=== PATIENT | female | born 1965 | race Two or more races ===

== ENCOUNTER 2016-11-26 17:51 | Emergency (ER) | payer OTHER ==
[2016-11-26 18:26] LABS: PH,URINE 6.5 (5.0-8.0); URINE BILIRUBIN NEGATIVE (NEGATIVE); URINE BLOOD 4+ (NEGATIVE); URINE GLUCOSE (UA) NEGATIVE (NEGATIVE); URINE LEUKOCYTE ESTERASE 2+ (NEGATIVE); URINE NITRITE NEGATIVE (NEGATIVE); URINE PROTEIN 1+ (NEGATIVE); URINE UROBILINOGEN NORMAL (0-1 mg/dl)
[2016-11-26 18:27] LABS: URINE APPEARANCE SL CLOUDY; URINE COLOR SALMON
[2016-11-26 18:43] LABS: URINE WBC 20-30 /hpf
[2016-11-26 18:44] LABS: URINE BACTERIA 2+
[2016-11-26] MEDS ORDERED: CEPHALEXIN 250 MG CAPSULE ONE (18:54)
[2016-11-26] MEDS ORDERED: PHENAZOPYRIDINE HCL 200 MG TABLET ONE (18:54)
== END 2016-11-26 19:22 | disposition home or self-care (01) ==
LOC: ED 17:51
DX: R30.0 Dysuria (principal); R31.9 Hematuria, unspecified